=== PATIENT | male | born 1985 | race Caucasian/White ===

== ENCOUNTER → 2020-10-09 | Outpatient (CLI) | payer OTHER ==
--- NOTE | 2020-10-09 15:38 | Diagnostic Imaging Report ---
INDICATION: Right upper quadrant pain. TIME OF EXAM: 12:18 p.m. FINDINGS: The bowel gas pattern is nonobstructed. There is moderate stool in the right and left colon. No pathologic calcifications are seen. No free air is identified. IMPRESSION: Moderate stool. The study is otherwise unremarkable. Dictated by: Dictated on workstation # [id number]
== END ==
LOC: RAD FS 12:16
PROVIDERS: ATTEND Nurse Practitioner Family
DX: R10.11 Right upper quadrant pain (principal)
CPT/HCPCS: 74018